=== PATIENT | male | born 1970 | race Caucasian/White ===

== ENCOUNTER 2020-11-19 16:28 | Emergency (ER) | payer SELFPAY ==
[~2020-11-19] VITALS: Ht 185.4 cm; Wt 81.6 kg
--- NOTE | 2020-11-19 16:36 | ED Lower Extremity ---
General Stated Complaint: RIGHT ANKLE INJ Source: patient History of Present Illness Date Seen by Provider: November 19, 2020 Time Seen by Provider: 16:29 Initial Comments 49-year-old male presenting with right ankle and foot pain on the lateral side since rolling his ankle last night. He states he was carrying some things and his ankle had rolled on him. He has had sharp severe pain since then. He tried taking some Tylenol with minimal improvement. He has had previous injuries to the ankle but nothing that has been this painful or severe. He feels like it is swollen and has sharp shooting pains when he tries to stand or bear weight. The pain is mainly on the lateral part of his ankle and foot as well as his heel. He had last taken Tylenol about 4 5 hours prior to arrival. He has been walking on it. Onset: yesterday Severity: severe Pain/Injury Location: right foot (lateral foot/5th metatarsal and heel), right ankle Method of Injury: twisted (rolled ankle) Modifying Factors: Worse With Movement (bearing weight) Allergies and Home Medications Allergies Coded Allergies: Penicillins (Verified Allergy, Unknown, 11/19/20) Patient Home Medication List Home Medication List Reviewed: Yes Review of Systems Constitutional: no symptoms reported EENTM: no symptoms reported Respiratory: no symptoms reported Cardiovascular: no symptoms reported Gastrointestinal: no symptoms reported Genitourinary: no symptoms reported Musculoskeletal: see HPI Skin: No change in color Psychiatric/Neurological: Denies Numbness, Denies Paresthesia Past Efzhenh-Fbwbxf-Ompojh Hx Past Med/Social Hx: Reviewed Nursing Past Med/Soc Hx Past Medical History Cardiac: Yes Hypertension Physical Exam Vital Signs Vital Signs - First Documented 11/19/20 16:32 Temp 36.8 Pulse 100 Resp 16 B/P (MAP) 162/108 (126) Pulse Ox 97 O2 Delivery Room Air Capillary Refill : Height, Weight, BMI Height: '" Weight: lbs. oz. 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, alert, oriented x 3 Skin: normal color, warm/dry; No ecchymosis Progress/Results/Core Measures Results/Orders My Orders Orders - SUSANNA MORRIS MD Ice: Apply To Affected Area (11/19/20 16:43) Ankle 3 View Right (11/19/20 16:43) Foot 3 View Right (11/19/20 16:43) Elevate Affected Extremity (11/19/20 16:43) Orthopedic Equiment (11/19/20 17:36) Ed Ortho/Other Supplies Order (11/19/20 17:36) Vital Signs/I&O 11/19/20 11/19/20 16:32 17:58 Temp 36.8 36.8 Pulse 100 87 Resp 16 16 B/P (MAP) 162/108 (126) 157/89 (126) Pulse Ox 97 98 O2 Delivery Room Air Progress Progress Note #1: Progress Note Offered for pain and inflammation and patient refused. Ice for pain and inflammation as well as elevation of the leg to help. X-rays ordered for the ankle and foot where he has pain. Progress Note #2: Progress Note No acute fracture or dislocation seen on ankle or foot. Since he feels like the ankle is unstable and rolls easily will place him in a boot for stability. He states he has crutches at home already. Counseled on using anti-inflammatories in addition to the Tylenol and ice. Follow-up with clinic or orthopedics if continued symptoms or not improving. Diagnostic Imaging Diagonstic Imaging: Xray Plain Films/CT/US/NM/MRI: ankle Comments [facility], [place] NAME: DAVID POWER [facility] REC#: [id number] PT STATUS: REG ER : 1970 PHYSICIAN: SUSANNA MORRIS MD ADMIT DATE: 11/19/20/ER FS Signed Date of Exam:11/19/20 ANKLE 3 VIEW RIGHT INDICATION: Right ankle injury. Three views of the right ankle show no fracture, dislocation or other acute abnormalities. IMPRESSION: Negative right ankle Dictated by: Dictated on workstation # [id number] Dict: 11/19/20 1708 Trans: 11/19/20 1738 [facility] [id number] Interpreted by: GODWIN MÁRQUEZ MD Electronically signed by: GODWIN MÁRQUEZ MD 11/19/20 1738 Diagonstic Imaging: Xray Plain Films/CT/US/NM/MRI: other (foot) Comments [facility], [place] NAME: DAVID POWER [facility] REC#: [id number] PT STATUS: DEP ER : 1970 PHYSICIAN: SUSANNA MORRIS MD ADMIT DATE: 11/19/20/ER FS Signed Date of Exam:11/19/20 FOOT 3 VIEW RIGHT EXAMINATION: Right foot at 05:00 p.m. INDICATION: Foot pain. TECHNIQUE: Three views were obtained. COMPARISON: There are no prior studies available for comparison. FINDINGS: There is no fracture, dislocation, or acute bony abnormality identified. The Lisfranc joint seems well maintained. The soft tissues are unremarkable. IMPRESSION: There is no evidence for an acute bony abnormality. Dictated by: Dictated on workstation # [id number] Dict: 11/19/201708 Trans: 11/19/201757 [facility] [id number] Interpreted by: MICKY PALENCIA MD Electronically signed by: MICKY PALENCIA MD 11/19/201757 Departure Impression Primary Impression: Sprain of right ankle Qualified Codes: S93.401A - Sprain of unspecified ligament of right ankle, initial encounter Disposition: 01 HOME, SELF-CARE Condition: Stable Departure-Patient Inst. Decision time for Depature: 17:37 Referrals: NO,LOCAL PHYSICIAN (PCP/Family) Primary Care Physician Patient Instructions: Ankle Sprain ED, Foot Sprain ED, How to Use Crutches, Using Cold for Pain, Walking Boot Add. Discharge Instructions: Use boot to help with stabilizing and immobilizing your ankle and foot so the sprain can heal. Use this and the crutches for the next 7 to 10 days and if not better check with clinic. Crutches for weight bearing as tolerated. Try using Aleve (Naproxen) over the counter for pain and inflammation. You may also use Acetaminophen (Tylenol) for pain but it will not help with inflammation. For continued pain and symptoms check with clinic at [facility] by calling [phone] to get an appointment and establish care with a provider if you will be staying here in [facility], otherwise you could try to get in with Dr. Mac with Orthopedics in [place] or primary care provider in that area. Work/School Note: Work Release Form Date Seen in the Emergency Department: November 19, 2020 Return to Work: November 21, 2020 Other Restrictions Listed Below: Use boot and crutches for next 7 to 10 days as needed for pain SUSANNA MORRIS MD November 19, 2020 16:36
--- NOTE | 2020-11-19 17:10 | Diagnostic Imaging Report ---
INDICATION: Right ankle injury. Three views of the right ankle show no fracture, dislocation or other acute abnormalities. IMPRESSION: Negative right ankle Dictated by: Dictated on workstation # [id number]
--- NOTE | 2020-11-19 17:12 | Diagnostic Imaging Report ---
EXAMINATION: Right foot at 05:00 p.m. INDICATION: Foot pain. TECHNIQUE: Three views were obtained. COMPARISON: There are no prior studies available for comparison. FINDINGS: There is no fracture, dislocation, or acute bony abnormality identified. The Lisfranc joint seems well maintained. The soft tissues are unremarkable. IMPRESSION: There is no evidence for an acute bony abnormality. Dictated by: Dictated on workstation # [id number]
[2020-11-19 17:58] VITALS: BP 157/89
== END 2020-11-19 17:52 | disposition home or self-care (01) ==
LOC: ER FS 16:31
DX: S93.401A Sprain of unspecified ligament of right ankle, initial encounter (principal); I10 Essential (primary) hypertension; Z88.0 Allergy status to penicillin
CPT/HCPCS: 73610; 73630